=== PATIENT | male | born 1980 | race Caucasian/White ===

== ENCOUNTER 2024-05-05 18:52 | Emergency (ER) | payer SELFPAY ==
[~2024-05-05] VITALS: Ht 167.6 cm; Wt 60.0 kg
[2024-05-05 19:06] VITALS: O2SAT 100
[2024-05-05] MEDS ORDERED: ACETAMINOPHEN 325MG TABLET PO ONE (19:30)
[2024-05-05] MEDS ORDERED: AMOX-494 MT (19:37)
[2024-05-05 19:58] VITALS: BP 135/71; PULSE 82; RESP 18; TEMP 97.3
[2024-05-05] MEDS ORDERED: ACETAMINOPHEN 325MG TABLET PO NR (20:00)
== END 2024-05-05 20:02 | disposition home or self-care (01) ==
LOC: ER 18:52
DX: H66.92 Otitis media, unspecified, left ear (principal)
CPT/HCPCS: 99283